=== PATIENT | female | born 1985 | race Caucasian/White ===

== ENCOUNTER 2017-04-25 10:15 | Emergency (ER) | payer MEDICAID ==
[2017-04-25] MEDS ORDERED: hydrOXYzine HCl 25 MG Tab PO ONE (10:16)
[2017-04-25] MEDS ORDERED: predniSONE 20 MG Tab PO ONE (10:16)
[2017-04-25 10:18] VITALS: BP 114/70
[2017-04-25] MEDS: diphenhydrAMINE 50 MG/ML SDV IM ONE (10:29)
[2017-04-25] MEDS: methylPREDNISolone Sodium Succinate 125 MG/2 ML SDV IVPUSH ONE (10:53)
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
[2017-04-25] MEDS: Take Home: hydrOXYzine HCl 25 MG Tab, 4 Tab Pack PO ONE (11:08)
[2017-04-25] MEDS: Take Home: predniSONE 20 MG, 2 Tab Pack PO ONE (11:08)
== END 2017-04-25 11:08 | disposition home or self-care (01) ==
LOC: CC.ED 10:15
DX: L50.9 Urticaria, unspecified (principal); F17.210 Nicotine dependence, cigarettes, uncomplicated; Z88.8 Allergy status to other drugs, medicaments and biological substances
CPT/HCPCS: 96372; 99282; A9270; J1200; J2930

== ENCOUNTER 2019-04-09 15:39 | Emergency (ER) | payer MEDICAID ==
[2019-04-09] MEDS ORDERED: Clindamycin HCl 150 MG Cap PO ONE (15:40)
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
[2019-04-09 15:58] VITALS: BP 118/77; PULSE 77
[2019-04-09] MEDS: Aluminum Hydroxide/Magnesium Hydroxide/Simethicone Susp 30 ML Cup PO ONE (16:12)
[2019-04-09] MEDS: Take Home: Clindamycin HCl 150 MG Cap, 6 Cap Pack PO ONE (16:13)
[2019-04-09] MEDS: Lidocaine 2% Viscous Solution 15 ML Cup PO ONE (16:14)
== END 2019-04-09 16:20 | disposition home or self-care (01) ==
LOC: CC.ED 15:39
DX: K04.7 Periapical abscess without sinus (principal); E10.9 Type 1 diabetes mellitus without complications; Z88.8 Allergy status to other drugs, medicaments and biological substances; Z79.4 Long term (current) use of insulin
CPT/HCPCS: 99283; A9270-GY